=== PATIENT | female | born 1995 | race African-American/Black ===

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

== ENCOUNTER 2017-01-17 10:49 | Inpatient (IN) | payer OTHER ==
[2017-01-17 11:41] LABS: Hematocrit 28 % (35-47); Hemoglobin 9.2 g/dl (12.0-16.0); Mean Corpuscular HGB Conc 33 g/dl (31-36); Mean Corpuscular Hemoglobin 28 pg (27-31); Mean Corpuscular Volume 83 fL (80-97); Mean Platelet Volume 9 um3 (7.4-10.4); Red Blood Count 3.32 10^6/ul (4.0-5.4); Red Cell Distribution Width 14 % (10.5-15); White Blood Count 14.2 10^3/ul (3.5-10.8)
[2017-01-17] MEDS ORDERED: RHO D Immune Globulin (HUMAN)* 300 MCG = 1,500 I.U. INJ IM ONE (12:26)
[2017-01-17] MEDS ORDERED: Witch Hazel PAD* JAR TOPICAL PRN (12:26)
[2017-01-17] MEDS ORDERED: Acetaminophen TAB* 325 MG PO PRN (12:26)
[2017-01-17] MEDS ORDERED: Methylergonovine INJ* 0.2 MG/ML 1ML AMP IM ONE (12:26)
[2017-01-17] MEDS ORDERED: Dibucaine 1% 28.35 GM TUBE PR PRN (12:26)
[2017-01-17] MEDS ORDERED: Simethicone CHEW TAB* 80 MG PO SCH (12:30)
[2017-01-17] MEDS: Ibuprofen TAB* 600 MG PO PRN ×2 (12:54→19:49)
[2017-01-17] MEDS ORDERED: Oxytocin in LR* 20 UNITS/1,000 ML BAG IVPB SCH (13:00)
[2017-01-17] MEDS ORDERED: OXYTOCIN* 10 UNITS/ML 1 ML VIAL ONE (13:39)
[2017-01-17] MEDS: Docusate CAP* 100 MG PO SCH ×2 (15:55→19:49)
[2017-01-18] MEDS: Ibuprofen TAB* 600 MG PO PRN ×2 (03:13→11:18)
[2017-01-18 05:46] LABS: Hematocrit 21 % (35-47); Hemoglobin 7.1 g/dl (12.0-16.0); Mean Corpuscular HGB Conc 34 g/dl (31-36); Mean Corpuscular Hemoglobin 28 pg (27-31); Mean Corpuscular Volume 83 fL (80-97); Mean Platelet Volume 9 um3 (7.4-10.4); Red Blood Count 2.52 10^6/ul (4.0-5.4); Red Cell Distribution Width 14 % (10.5-15); White Blood Count 10.1 10^3/ul (3.5-10.8)
[2017-01-18 08:16] VITALS: BP 118/59
[2017-01-18] MEDS ORDERED: RHO D Immune Globulin (HUMAN)* 300 MCG = 1,500 I.U. INJ IM ONE (08:53)
[2017-01-18] MEDS ORDERED: Ferrous Gluconate TAB* 324 MG TAB PO SCH (09:00)
[2017-01-18] MEDS: Docusate CAP* 100 MG PO SCH (09:00)
== END 2017-01-18 11:20 | disposition home or self-care (01) | DRG 560 ==
LOC: MCHOBOUT 10:49 → MCHOB 11:12
PROVIDERS: ADMIT Obstetrics & Gynecology; ATTEND Obstetrics & Gynecology
PROC: 10E0XZZ Delivery of Products of Conception, External Approach (ICD-10-PCS; principal; 2017-01-17)
PROC: 10907ZC Drainage of Amniotic Fluid, Therapeutic from Products of Conception, Via Natural or Artificial Opening (ICD-10-PCS; 2017-01-17)
PROC: 0KQM0ZZ Repair Perineum Muscle, Open Approach (ICD-10-PCS; 2017-01-17)
DX: O71.4 Obstetric high vaginal laceration alone (principal); Z37.0 Single live birth; D64.9 Anemia, unspecified; O90.81 Anemia of the puerperium; Z3A.39 39 weeks gestation of pregnancy
CPT/HCPCS: 36415; 85025; 85461; 86850; 86870; 86880; 86900; 86901; A9270-GY; J2210; J2590; J2790